=== PATIENT | male | born 1990 | race Caucasian/White ===

== ENCOUNTER 2017-01-31 07:33 | Emergency (ER) | payer OTHER ==
[~2017-01-31] VITALS: Ht 170.2 cm; Wt 80.5 kg
[2017-01-31 07:35] VITALS: BP 118/75; PULSE 70; RESP 14; TEMP 98.2; O2SAT 99
[2017-01-31] MEDS ORDERED: SODIUM CHLORIDE 0.9% FLUSH 10 ML FLUSH IVF PRN (07:45)
[2017-01-31] MEDS ORDERED: DEXAMETHASONE SOD PHOS 4 MG/ML VIAL IV ONE (07:45)
[2017-01-31 07:58] LABS: AUTOMATED NEUTROPHIL # 5.4 TH/MM3 (1.8-7.7); BASOPHIL # 0.2 TH/MM3 (0-0.2); BASOPHIL % 2.2 % (0.0-2.0); EOSINOPHIL # 0.2 TH/MM3 (0-0.4); EOSINOPHIL % 2.4 % (0.0-4.0); HEMATOCRIT 41.6 % (39.0-51.0); LYMPH % 11.3 % (9.0-44.0); LYMPHOCYTE # 0.8 TH/MM3 (1.0-4.8); MEAN CELL VOLUME 84.2 FL (80.0-100.0); MEAN CORPUSCULAR HEMOGLOBIN 28.2 PG (27.0-34.0); MEAN CORPUSCULAR HGB CONC 33.5 % (32.0-36.0); MONO % 7.1 % (0.0-8.0); PLATELET COUNT 240 TH/MM3 (150-450); RED BLOOD COUNT 4.95 MIL/MM3 (4.50-5.90); RED CELL DISTRIBUTION WIDTH 12.8 % (11.6-17.2); WHITE BLOOD COUNT 7.1 TH/MM3 (4.0-11.0)
[2017-01-31 07:59] LABS: HEMO FLAGS DIFF FINAL
[2017-01-31 08:06] LABS: POTASSIUM 3.9 MEQ/L (3.5-5.1)
[2017-01-31 08:09] LABS: BICARBONATE 28.9 MEQ/L (21.0-32.0)
[2017-01-31] MEDS ORDERED: IOHEXOL 350 MG/ML 10 ML VIAL (for RAD DIAG) IV ONE (08:45)
--- NOTE | 2017-01-31 08:47 | RADRPT ---
EXAM DATE/TIME: 01/31/2017 08:21 [place] COMPARISON: No previous studies available for comparison. INDICATIONS : Sore throat, swelling neck, 2 days, history cysts. IV CONTRAST: 75 cc Omnipaque 350 (iohexol) IV RADIATION DOSE: 12.94 CTDIvol (mGy) MEDICAL HISTORY : snuff SURGICAL HISTORY : 9 cyst removals, thyroglossal. ENCOUNTER: Initial ACUITY: 2 days PAIN SCALE: 6/10 LOCATION: Bilateral neck TECHNIQUE: Volumetric scanning of the neck was performed. Using automated exposure control and adjustment of th e mA and/or kV according to patient size, radiation dose was kept as low as reasonably achievable to obtain optimal diagnostic quality images. DICOM format image data is available electronically for r eview and comparison. FINDINGS: NASOPHARYNX: The nasopharyngeal airway has a normal configuration. No mucosal thickening or mass is seen. OROPHARYNX: The intrinsic muscles of the tongue are symmetric. The tonsillar pillars are intact. The prevertebr al soft tissues are not thickened. LARYNX: The supraglottic, glottic, and infraglottic structures are intact. PARAPHARYNGEAL: The parapharyngeal space is intact. SALIVARY GLANDS: The parotid and submandibular glands are intact. LYMPH NODES: No enlarged or necrotic-appearing nodes. THYROID: Homogeneous enhancement without evidence of nodule. BONES: Unremarkable. There is chronic bilateral maxillary sinus disease, left greater than right. CONCLUSION: 1. Bilateral chronic maxillary sinus disease, left greater than right. 2. Otherwise unremarkable CT soft tissue neck for patient's age. Darwin Tadeo MD on January 31, 2017 at 8:42 Board Certified Radiologist. This report was verified electronically.
[2017-01-31] MEDS ORDERED: CIPR500T2 PO (09:08)
[2017-01-31] MEDS ORDERED: CODE30TA2 PO (09:08)
--- NOTE | 2017-01-31 09:10 | PD ---
HPI Chief Complaint: Cold / Flu Symptoms Time Seen by Provider: 07:44 Travel History International Travel<30 days: No Contact w/Intl Traveler<30days: No Traveled to known affect area: No History of Present Illness HPI C/O SORE THROAT, ONGOING FOR PAST 24 HRS, WORSE WITH SWALLOWING, (GIVES H/O MULTIPLE SURGERIES FOR THYROGLOSSAL CYST IN PAST). DENIES FEVER, COUGH, N/V/D/ ABD PAIN. PFSH Past Medical History Medical History: Denies Significant Hx Blood Disorders: No Diminished Hearing: No Tetanus Vaccination: Unknown Past Surgical History Oral Surgery: Yes (9 THROAT SURGERIES WITH CYST REMOVALS) Social History Alcohol Use: No Tobacco Use: No Substance Use: No Allergies-Medications (Allergen,Severity, Reaction): Coded Allergies: Apple (Verified Adverse Reaction, Severe, Vomiting, 01/31/17) Augmentin (Verified Adverse Reaction, Severe, "Severe colitis", 01/31/17) Reported Meds & Prescriptions Reported Meds & Active Scripts Active Codeine-Acetaminophen 30-300 mg Tab 1 Tab PO Q4H PRN Ciprofloxacin (Ciprofloxacin HCl) 500 Mg Tab 500 Mg PO BID Review of Systems Except as stated in HPI: all other systems reviewed are Neg HENT: Positive: Sore Throat Physical Exam Narrative GENERAL: SKIN: Warm and dry. HEAD: Atraumatic. Normocephalic. EYES: Pupils equal and round. No scleral icterus. No injection or drainage. ENT: No nasal bleeding or discharge. Mucous membranes pink and moist...ERYTHEMATOUS AND EDEMATOUS OROPHARYNX BUT WITHOUT EXUDATE, WITHOUT UVULAR EDEMA, NO STRIDOR, NO RESP DISTRESS NECK: Trachea midline. No JVD. OLD HEALED SURGICAL SCAR IN MIDLINE SUBMENTAL AREA. CARDIOVASCULAR: Regular rate and rhythm. RESPIRATORY: No accessory muscle use. Clear to auscultation. Breath sounds equal bilaterally. GASTROINTESTINAL: Abdomen soft, non-tender, nondistended. Hepatic and splenic margins not palpable. MUSCULOSKELETAL: Extremities without clubbing, cyanosis, or edema. No obvious deformities. NEUROLOGICAL: Awake and alert. No obvious cranial nerve deficits. Motor grossly within normal limits. Five out of 5 muscle strength in the arms and legs. Normal speech. PSYCHIATRIC: Appropriate mood and affect; insight and judgment normal. Data Data Last Documented VS Orders Basic Metabolic Panel (Bmp) (01/31/17 07:44) Complete Blood Count With Diff (01/31/17 07:44) Monoscreen (01/31/17 07:44) Group A Rapid Strep Screen (01/31/17 07:44) Ct Soft Tiss Neck W Iv Cont (01/31/17 07:44) Iv Access Insert/Monitor (01/31/17 07:44) Dexamethasone Inj (Decadron Inj) (01/31/17 07:45) Sodium Chloride 0.9% Flush (Ns Flush) (01/31/17 07:45) Strep Culture (Group A) (01/31/17 07:50) Iohexol 350 Inj (Omnipaque 350 Inj) (01/31/17 08:45) Labs MDM Medical Decision Making Medical Screen Exam Complete: Yes Emergency Medical Condition: Yes Medical Record Reviewed: Yes Differential Diagnosis PHARYNGITIS V RETROPHARYNGEAL ABSCESS V NECK SPACE ABSCESS V MONO V STREP Narrative Course PATIENT TOLERATING PO FLUIDS WELL, IN NO RESP DISTRESS. STREP NEG, CBC AND CMP WNL , MONO PENDING, CT NECK NEG ABSCESS BUT DID NOTE CHAYO MAX SINUSITIS (CHRONIC APPEARANCE PER RAD)... IN LIEU OF THESE FINDINGS WILL START PATIENT ON CIPRO AND TYL#3 (PT IS ALLERGIC TO AUGMENTIN) Diagnosis Primary Impression: PHARYNGITIS Additional Impression: Chronic sinusitis of both maxillary sinuses Patient Instructions: General Instructions, Pharyngitis (ED) Scripts Codeine-Acetaminophen 30-300 mg Tab1 Tab PO Q4H PRN (PAIN) #20 TAB Prov:Tashi Mejia MD 01/31/17 Ciprofloxacin 500 Mg [id number] Mg PO BID #14 TAB Prov:Tashi Mejia MD 01/31/17 Disposition: 01 DISCHARGE HOME Condition: Stable Tashi Mejia MD Jan 31, 2017 09:10 Red Cell Distribution Width 12.8 % Platelet Count 240 TH/MM3 Mean Platelet Volume 7.6 FL Neutrophils (%) (Auto) 77.0 % Lymphocytes (%) (Auto) 11.3 % Monocytes (%) (Auto) 7.1 % Eosinophils (%) (Auto) 2.4 % Basophils (%) (Auto) 2.2 % Neutrophils # (Auto) 5.4 TH/MM3 Lymphocytes # (Auto) 0.8 TH/MM3 Monocytes # (Auto) 0.5 TH/MM3 Eosinophils # (Auto) 0.2 TH/MM3 Basophils # (Auto) 0.2 TH/MM3 CBC Comment DIFF FINAL Differential Comment Sodium Level 142 MEQ/L Potassium Level 3.9 MEQ/L Chloride Level 107 MEQ/L Carbon Dioxide Level 28.9 MEQ/L Anion Gap 6 MEQ/L Blood Urea Nitrogen 14 MG/DL Creatinine 0.94 MG/DL Estimat Glomerular Filtration 99 ML/MIN Rate Random Glucose 69 MG/DL Calcium Level 9.0 MG/DL [facility] Medical Decision Making Medical Screen Exam Complete: Yes Medical Record Reviewed: Yes Differential Diagnosis PHARYNGITIS V RETROPHARYNGEAL ABSCESS V NECK SPACE ABSCESS V MONO V STREP Narrative Course PATIENT TOLERATING PO FLUIDS WELL, IN NO RESP DISTRESS. STREP NEG, CBC AND CMP WNL , MONO PENDING, CT NECK NEG ABSCESS BUT DID NOTE CHAYO MAX SINUSITIS (CHRONIC APPEARANCE PER RAD)... IN LIEU OF THESE FINDINGS WILL START PATIENT ON CIPRO AND TYL#3 (PT IS ALLERGIC TO AUGMENTIN) Diagnosis Primary Impression: PHARYNGITIS Additional Impression: Chronic sinusitis of both maxillary sinuses Patient Instructions: General Instructions, Pharyngitis (ED) Scripts Codeine-Acetaminophen 30-300 mg Tab1 Tab PO Q4H PRN (PAIN) #20 TAB Prov:Tashi Mejia MD 01/31/17 Ciprofloxacin 500 Mg [id number] Mg PO BID #14 TAB Prov:Tashi Mejia MD 01/31/17 Disposition: 01 DISCHARGE HOME Condition: Stable Tashi Mejia MD Jan 31, 2017 09:10
[2017-01-31 09:42] VITALS: BP 114/72
== END 2017-01-31 09:47 | disposition home or self-care (01) ==
LOC: PHED 07:33
DX: J02.9 Acute pharyngitis, unspecified (principal); J32.0 Chronic maxillary sinusitis
CPT/HCPCS: 70491; 80048; 85025; 86308; 87081; 87880; 96374; 99285; J1100; Q9967

== ENCOUNTER 2017-04-16 14:18 | Emergency (ER) | payer OTHER ==
[~2017-04-16] VITALS: Ht 172.7 cm; Wt 78.6 kg
[~2017-04-16 14:18] MED LIST: CIPR500T2 PO; CODE30TA2 PO
[2017-04-16 14:22] VITALS: BP 128/70; PULSE 62; RESP 18; TEMP 98; O2SAT 100
[2017-04-16] MEDS ORDERED: SODIUM CHLOR 0.9% 1000 ML INJ 1,000 ML IV ONE ×2 (14:33→15:45)
--- NOTE | 2017-04-16 14:41 | PD ---
HPI . Vomiting and diarrhea Chief Complaint: GI Complaint Time Seen by Provider: 14:32 Travel History International Travel<30 days: No Contact w/Intl Traveler<30days: No Traveled to known affect area: No History of Present Illness HPI Patient presents with the acute onset of nausea, vomiting and diarrhea. It started this morning. He has had about 5 episodes of each. He is also having some left-sided crampy abdominal pain which he rates 9/10. He states that the abdominal pain comes just prior to vomiting. Denies any urinary tract symptoms such as dysuria, frequency or urgency. He denies fever. He has no known sick contacts. No modifying factors. PFSH Past Medical History Blood Disorders: No Diminished Hearing: No Past Surgical History Oral Surgery: Yes (9 THROAT SURGERIES WITH CYST REMOVALS) Social History Alcohol Use: No Tobacco Use: No Substance Use: No Allergies-Medications (Allergen,Severity, Reaction): Coded Allergies: amoxicillin (Unverified Adverse Reaction, Severe, "Severe colitis", 04/16/17 ) apple (Unverified Adverse Reaction, Severe, Vomiting, 04/16/17) clavulanic acid (Unverified Adverse Reaction, Severe, "Severe colitis", 04/16/17) Reported Meds & Prescriptions Reported Meds & Active Scripts Active Phenergan (Promethazine HCl) 25 Mg Tablet 25 Mg PO Q6H PRN Review of Systems Except as stated in HPI: all other systems reviewed are Neg General / Constitutional: No: Fever, Chills Gastrointestinal: Positive: Nausea, Vomiting, Diarrhea, Abdominal Pain Genitourinary: No: Urgency, Frequency, Dysuria Physical Exam Narrative GENERAL: This patient is pale and does not look like he feels well. SKIN: Cool and clammy. HEAD: Normocephalic. EYES: Pupils equal and round. No scleral icterus. No injection or drainage. ENT: No nasal bleeding or discharge. Mucous membranes pink and moist. NECK: Trachea midline. Full range of motion without pain.. CARDIOVASCULAR: Regular rate and rhythm. RESPIRATORY: No accessory muscle use. Clear to auscultation. Breath sounds equal bilaterally. GASTROINTESTINAL: Abdomen soft. Left upper quadrant tenderness. No guarding or rebound. Bowel sounds present. Nondistended. MUSCULOSKELETAL: No obvious deformities. NEUROLOGICAL: Awake and alert. No obvious cranial nerve deficits. Motor grossly within normal limits. Normal speech. PSYCHIATRIC: Appropriate mood and affect; insight and judgment normal. Data Data Last Documented VS Vital Signs Date Time Temp Pulse Resp B/P (MAP) Pulse Ox O2 Delivery O2 Flow Rate FiO2 04/16/17 15:45 54 16 125/64 (84) 100 Room Air 04/16/17 14:22 98.0 Orders Orders Complete Blood Count With Diff (04/16/17 14:33) Basic Metabolic Panel (Bmp) (04/16/17 14:33) Urinalysis - C+S If Indicated (04/16/17 14:33) Iv Access Insert/Monitor (04/16/17 14:33) Morphine Inj (Morphine Inj) (04/16/17 14:45) Ondansetron Inj (Zofran Inj) (04/16/17 14:45) Sodium Chlor 0.9% 1000 Ml Inj (Ns 1000 M (04/16/17 14:33) Sodium Chloride 0.9% Flush (Ns Flush) (04/16/17 14:45) Sodium Chlor 0.9% 1000 Ml Inj (Ns 1000 M (04/16/17 15:45) Labs Laboratory Tests Test 04/16/17 14:42 04/16/17 14:48 White Blood Count 13.1 TH/MM3 Red Blood Count 4.82 MIL/MM3 Hemoglobin 13.8 GM/DL Hematocrit 40.5 % Mean Corpuscular Volume 83.9 FL Mean Corpuscular Hemoglobin 28.6 PG Mean Corpuscular Hemoglobin Concent 34.1 % Red Cell Distribution Width 12.6 % Platelet Count 253 TH/MM3 Mean Platelet Volume 7.9 FL Neutrophils (%) (Auto) 87.9 % Lymphocytes (%) (Auto) 6.8 % Monocytes (%) (Auto) 4.7 % Eosinophils (%) (Auto) 0.4 % Basophils (%) (Auto) 0.2 % Neutrophils # (Auto) 11.5 TH/MM3 Lymphocytes # (Auto) 0.9 TH/MM3 Monocytes # (Auto) 0.6 TH/MM3 Eosinophils # (Auto) 0.1 TH/MM3 Basophils # (Auto) 0.0 TH/MM3 CBC Comment DIFF FINAL Differential Comment Blood Urea Nitrogen 16 MG/DL Creatinine 0.90 MG/DL Random Glucose 92 MG/DL Calcium Level 9.3 MG/DL Sodium Level 139 MEQ/L Potassium Level 4.3 MEQ/L Chloride Level 105 MEQ/L Carbon Dioxide Level 27.9 MEQ/L Anion Gap 6 MEQ/L Estimat Glomerular Filtration Rate 104 ML/MIN Urine Color YELLOW Urine Turbidity CLOUDY Urine pH 7.0 Urine Specific [place] 1.024 Urine Protein NEG mg/dL Urine Glucose (UA) NEG mg/dL Urine Ketones NEG mg/dL Urine Occult Blood NEG Urine Nitrite NEG Urine Bilirubin NEG Urine Leukocyte Esterase NEG Urine RBC 0-3 /hpf Urine WBC 0-2 /hpf Urine Squamous Epithelial Cells 0-5 /hpf Urine Amorphous Sediment MOD Microscopic Urinalysis Comment CULT NOT INDICATED MDM Medical Decision Making Medical Screen Exam Complete: Yes Emergency Medical Condition: Yes Differential Diagnosis Differential diagnosis of diarrhea includes but is not limited to early enteritis, bacterial enteritis, antibiotic induced diarrhea, irritable bowel syndrome Narrative Course This patient presents with the acute onset of vomiting and diarrhea. He will be fluid resuscitated. The symptoms would be treated with morphine and Zofran. I will check a UA because of the left upper quadrant pain to rule out stone or infection. UA is neg for infection or blood. BMP Diagram 04/16/17 14:42 Calcium Level 9.3 CBC Diagram 04/16/17 14:42 The patient reports that he is feeling much better. He still looks pale. I will give him a second liter of fluid prior to discharge. Diagnosis Primary Impression: Vomiting Qualified Codes: R11.2 - Nausea with vomiting, unspecified Additional Impressions: Diarrhea Qualified Codes: R19.7 - Diarrhea, unspecified Left upper quadrant abdominal pain of unknown etiology Patient Instructions: Gastroenteritis (DC), General Instructions Med/Other Pt SpecificInfo: Prescription(s) given Scripts Promethazine (Phenergan) 25 Mg Tablet 25 MG PO Q6H Y for NAUSEA OR VOMITING, #10 TAB 0 Refills Prov: Aliza Lord MD 04/16/17 Disposition: 01 DISCHARGE HOME Condition: Stable Aliza Lord MD Apr 16, 2017 14:41
[2017-04-16] MEDS ORDERED: SODIUM CHLORIDE 0.9% FLUSH 10 ML FLUSH IVF PRN (14:45)
[2017-04-16] MEDS ORDERED: ONDANSETRON HCL 4 MG/2 ML VIAL IVP ONE (14:45)
[2017-04-16] MEDS ORDERED: MORPHINE SULFATE 4 MG/ML INJ IV ONE (14:45)
[2017-04-16 14:59] LABS: AUTOMATED NEUTROPHIL # 11.5 TH/MM3 (1.8-7.7); BASOPHIL % 0.2 % (0.0-2.0); EOSINOPHIL # 0.1 TH/MM3 (0-0.4); EOSINOPHIL % 0.4 % (0.0-4.0); HEMATOCRIT 40.5 % (39.0-51.0); LYMPH % 6.8 % (9.0-44.0); LYMPHOCYTE # 0.9 TH/MM3 (1.0-4.8); MEAN CELL VOLUME 83.9 FL (80.0-100.0); MEAN CORPUSCULAR HEMOGLOBIN 28.6 PG (27.0-34.0); MEAN CORPUSCULAR HGB CONC 34.1 % (32.0-36.0); MONO % 4.7 % (0.0-8.0); NEUT % 87.9 % (16.0-70.0); PLATELET COUNT 253 TH/MM3 (150-450); RED BLOOD COUNT 4.82 MIL/MM3 (4.50-5.90); RED CELL DISTRIBUTION WIDTH 12.6 % (11.6-17.2); WHITE BLOOD COUNT 13.1 TH/MM3 (4.0-11.0)
[2017-04-16 15:02] LABS: BLOOD, URINE NEG (NEG); GLUCOSE,URINE NEG (NEG); KETONE, URINE NEG (NEG); NITRITE,URINE NEG (NEG)
[2017-04-16 15:08] LABS: POTASSIUM 4.3 MEQ/L (3.5-5.1)
[2017-04-16 15:12] LABS: BICARBONATE 27.9 MEQ/L (21.0-32.0)
[2017-04-16 15:15] LABS: URINE COLOR YELLOW (YELLW/STRAW)
[2017-04-16 15:17] LABS: COMMENT (UR) CULT NOT INDICATED; CULTURE IF INDICATED CULT NOT INDICATED; RBC, URINE 0-3 /hpf (0-3); SQUAMOUS EPITHELIAL CELL URINE 0-5 /hpf (0-5); WBC, URINE 0-2 /hpf (0-5)
[2017-04-16] MEDS ORDERED: PROM25TA10 PO (15:33)
[2017-04-16 15:44] LABS: HEMO FLAGS DIFF FINAL
[2017-04-16 15:45] VITALS: BP 125/64; PULSE 54; RESP 16; O2SAT 100
== END 2017-04-16 16:18 | disposition home or self-care (01) ==
LOC: PHED 14:18
DX: R11.2 Nausea with vomiting, unspecified (principal); R19.7 Diarrhea, unspecified; R10.9 Unspecified abdominal pain
CPT/HCPCS: 80048; 81001; 85025; 96361; 96374; 96375; 99284; J2270; J2405; J7030

== ENCOUNTER 2017-05-13 20:31 | Emergency (ER) | payer OTHER ==
[~2017-05-13] VITALS: Ht 172.7 cm; Wt 79.8 kg
[~2017-05-13 20:31] MED LIST changes: -CIPR500T2 PO; -CODE30TA2 PO; +PROM25TA10 PO
[2017-05-13 20:43] VITALS: BP 128/79; PULSE 53; RESP 18; TEMP 98.5; O2SAT 100
--- NOTE | 2017-05-13 21:29 | PD ---
HPI Chief Complaint: Respiratory Symptoms Time Seen by Provider: 21:26 Travel History International Travel<30 days: No Contact w/Intl Traveler<30days: No Traveled to known affect area: No History of Present Illness HPI 26-year-old male presents emergency department for evaluation of cough and wheezing times one day. Patient reports no sick contacts. He reports mild sore throat and nasal congestion. He denies fever, chills, chest pain, shortness of breath. No aggravating factors or alleviating factors. Symptoms severity mild PFSH Past Medical History Medical History: Denies Significant Hx Blood Disorders: No Diminished Hearing: No Immunizations Current: Yes Past Surgical History Oral Surgery: Yes (9 THROAT SURGERIES WITH CYST REMOVALS) Social History Alcohol Use: No Tobacco Use: Yes (Quit dip 2 weeks ago) Substance Use: No Allergies-Medications (Allergen,Severity, Reaction): Coded Allergies: amoxicillin (Unverified Adverse Reaction, Severe, "Severe colitis", ) apple (Unverified Adverse Reaction, Severe, Vomiting, 05/13/17) clavulanic acid (Unverified Adverse Reaction, Severe, "Severe colitis", ) Reported Meds & Prescriptions Reported Meds & Active Scripts Active No Active Prescriptions or Reported Medications Review of Systems Except as stated in HPI: all other systems reviewed are Neg HENT: Positive: Congestion Respiratory: Positive: Cough, Wheezing Physical Exam Narrative GENERAL: Well-nourished, well-developed patient. SKIN: Focused skin assessment warm/dry. HEAD: Normocephalic. EYES: No scleral icterus. No injection or drainage. NECK: Supple, trachea midline. No JVD or lymphadenopathy. CARDIOVASCULAR: Regular rate and rhythm without murmurs, gallops, or rubs. RESPIRATORY: Breath sounds equal bilaterally. No accessory muscle use. Slight expiratory wheeze which clears with cough. No rhonchi. GASTROINTESTINAL: Abdomen soft, non-tender, nondistended. Data Data Last Documented VS Vital Signs Date Time Temp Pulse Resp B/P (MAP) Pulse Ox O2 Delivery O2 Flow Rate FiO2 05/13/17 20:43 98.5 53 18 128/79 (95) 100 MDM Medical Decision Making Medical Screen Exam Complete: Yes Emergency Medical Condition: Yes Differential Diagnosis URI, asthma, pneumonia, reactive airway, bronchitis Narrative Course 26-year-old male presents emergency department for evaluation of cough and wheezing times one day. Patient reports he also has nasal congestion and mild sore throat. He reports no history of asthma. On exam he is well-appearing. Patient does have mild expiratory wheeze which clears with cough. His vital signs are stable. His pulse ox on room air is 100%. No respiratory distress. Mild pharyngeal erythema without tonsillar hypertrophy or exudate. Patient's exam is consistent with viral URI and mild reactive airways. Patient be treated with steroids, bronchodilator, cough suppressant. Diagnosis Primary Impression: URI (upper respiratory infection) Qualified Codes: J06.9 - Acute upper respiratory infection, unspecified; B97.89 - Other viral agents as the cause of diseases classified elsewhere Referrals: [facility] Additional Instructions: Take medications as prescribed. Stay well hydrated by drinking plenty fluids. Follow-up with the [facility]. Return to the emergency department if he developed new or worsening symptoms Scripts Benzonatate (Tessalon Perles) 100 Mg Cap 100 MG PO TID Y for COUGH for 5 Days, CAP 0 Refills Prov: Ana Cristina Pollard 05/13/17 Albuterol 18 GM Inh (Ventolin Hfa 18 GM Inh) 90 Mcg/Act Aer 2 PUFF INH Q4-6H Y for SHORTNESS OF BREATH, #1 INHALER 0 Refills Prov: Ana Cristina Pollard 05/13/17 Prednisone (Prednisone) 20 Mg Tab 40 MG PO DAILY, #10 TAB 0 Refills Take 40 mg (2 tablets) daily for 5 days Prov: Ana Cristina Pollard 05/13/17 Disposition: 01 DISCHARGE HOME Condition: Stable Ana Cristina Pollard May 13, 2017 21:29
[2017-05-13] MEDS ORDERED: BENZ100 PO (21:41)
[2017-05-13] MEDS ORDERED: PRED20 PO (21:41)
[2017-05-13] MEDS ORDERED: VENTAER INH (21:41)
== END 2017-05-13 21:50 | disposition home or self-care (01) ==
LOC: PHEFT 20:31
DX: J06.9 Acute upper respiratory infection, unspecified (principal); B97.89 Other viral agents as the cause of diseases classified elsewhere; Z87.891 Personal history of nicotine dependence
CPT/HCPCS: 99284

== ENCOUNTER 2017-06-06 19:10 | Emergency (ER) | payer OTHER ==
[~2017-06-06] VITALS: Ht 170.2 cm; Wt 78.0 kg
[~2017-06-06 19:10] MED LIST changes: +BENZ100 PO; +PRED20 PO; -PROM25TA10 PO; +VENTAER INH
[2017-06-06] MEDS ORDERED: IOHEXOL 350 MG/ML 10 ML VIAL (for RAD DIAG) IVCONTRAST ONE (19:11)
[2017-06-06 19:16] VITALS: BP 112/75; PULSE 76; RESP 18; TEMP 99; O2SAT 100
[2017-06-06] MEDS ORDERED: ONDANSETRON HCL 4 MG/2 ML VIAL IV PUSH ONE (19:30)
[2017-06-06] MEDS ORDERED: SODIUM CHLORIDE 0.9% FLUSH 10 ML FLUSH IV FLUSH PRN (19:30)
[2017-06-06] MEDS ORDERED: KETOROLAC TROMETHAMINE 30 MG/ML (IVP) VIAL IV PUSH ONE (19:30)
[2017-06-06] MEDS ORDERED: SODIUM CHLOR 0.9% 1000 ML INJ 1,000 ML IV ONE (19:30)
--- NOTE | 2017-06-06 19:32 | PD ---
HPI Chief Complaint: GI Complaint Time Seen by Provider: 19:25 Travel History International Travel<30 days: No Contact w/Intl Traveler<30days: No Traveled to known affect area: No History of Present Illness HPI This is a 26-year-old male who presents to the emergency department with right sided flank pain that started at 3 PM, intermittent, sharp and stabbing associated with multiple episodes of vomiting as well as shaking chills and sweats. He denies any diarrhea. He had pain once like this in April and came to the emergency department and says he wasn't given a diagnosis. He's never had any abdominal surgeries. No one else is been sick. He denies any recent travel or camping. PFSH Past Medical History Narrative Medical Thyroglossal duct cyst Blood Disorders: No Diminished Hearing: No Immunizations Current: Yes ?: Not Past Surgical History Oral Surgery: Yes (9 THROAT SURGERIES WITH CYST REMOVALS) Social History Alcohol Use: No Tobacco Use: Yes (Quit dip 2 weeks ago) Substance Use: No Allergies-Medications (Allergen,Severity, Reaction): Coded Allergies: amoxicillin (Verified Adverse Reaction, Severe, "Severe colitis", 06/06/17 ) apple (Verified Adverse Reaction, Severe, Vomiting, 06/06/17) clavulanic acid (Verified Adverse Reaction, Severe, "Severe colitis", ) Reported Meds & Prescriptions Reported Meds & Active Scripts Active Review of Systems Except as stated in HPI: all other systems reviewed are Neg Physical Exam Narrative GENERAL:Well appearing, no acute distress SKIN: Focused skin assessment warm and dry. HEAD: Atraumatic. Normocephalic. EYES: Pupils equal and round. No injection or drainage. ENT: Moist mucous membranes NECK: Trachea midline. CARDIOVASCULAR: Regular rate and rhythm. No murmur appreciated. RESPIRATORY: Clear to auscultation. Breath sounds equal bilaterally. GASTROINTESTINAL: Abdomen soft, tender to palpation diffusely in the upper abdomen with no rebound or guarding. : No CVA tenderness MUSCULOSKELETAL: No obvious deformities. NEUROLOGICAL: Awake and alert. No obvious cranial nerve deficits. Moving all extremities. PSYCHIATRIC: Appropriate mood and affect; insight and judgment normal. Data Data Last Documented VS Vital Signs Date Time Temp Pulse Resp B/P (MAP) Pulse Ox O2 Delivery O2 Flow Rate FiO2 06/06/17 19:16 99.0 76 18 112/75 (87) 100 Orders Orders Complete Blood Count With Diff (06/06/17 19:26) Comprehensive Metabolic Panel (06/06/17 19:26) Lipase (06/06/17 19:26) Urinalysis - C+S If Indicated (06/06/17 19:26) Us Abdomen Gallbladder (06/06/17 ) Iv Access Insert/Monitor (06/06/17 19:26) Ecg Monitoring (06/06/17 19:26) Oximetry (06/06/17 19:26) Sodium Chloride 0.9% Flush (Ns Flush) (06/06/17 19:30) Sodium Chlor 0.9% 1000 Ml Inj (Ns 1000 M (06/06/17 19:30) Ketorolac Inj (Toradol Inj) (06/06/17 19:30) Ondansetron Inj (Zofran Inj) (06/06/17 19:30) Ct Abd/Pel W Iv Contrast(Rout) (06/06/17 ) Iohexol 350 Inj (Omnipaque 350 Inj) (06/06/17 19:11) Labs Laboratory Tests Test 06/06/17 19:40 White Blood Count 14.4 TH/MM3 Red Blood Count 5.63 MIL/MM3 Hemoglobin 15.6 GM/DL Hematocrit 47.5 % Mean Corpuscular Volume 84.4 FL Mean Corpuscular Hemoglobin 27.6 PG Mean Corpuscular Hemoglobin Concent 32.8 % Red Cell Distribution Width 12.8 % Platelet Count 269 TH/MM3 Mean Platelet Volume 8.0 FL Neutrophils (%) (Auto) 87.8 % Lymphocytes (%) (Auto) 4.5 % Monocytes (%) (Auto) 4.2 % Eosinophils (%) (Auto) 0.8 % Basophils (%) (Auto) 2.7 % Neutrophils # (Auto) 12.7 TH/MM3 Lymphocytes # (Auto) 0.6 TH/MM3 Monocytes # (Auto) 0.6 TH/MM3 Eosinophils # (Auto) 0.1 TH/MM3 Basophils # (Auto) 0.4 TH/MM3 CBC Comment DIFF FINAL Differential Comment Urine Color YELLOW Urine Turbidity CLEAR Urine pH 6.0 Urine Specific [place] 1.024 Urine Protein NEG mg/dL Urine Glucose (UA) NEG mg/dL Urine Ketones TRACE mg/dL Urine Occult Blood NEG Urine Nitrite NEG Urine Bilirubin NEG Urine Leukocyte Esterase NEG Urine RBC 0-2 /hpf Urine WBC 0-2 /hpf Urine Squamous Epithelial Cells 0-5 /hpf Urine Bacteria NONE /hpf Microscopic Urinalysis Comment CULT NOT INDICATED Blood Urea Nitrogen 13 MG/DL Creatinine 0.92 MG/DL Random Glucose 89 MG/DL Total Protein 8.3 GM/DL Albumin 4.3 GM/DL Calcium Level 9.2 MG/DL Alkaline Phosphatase 74 U/L Aspartate Amino Transf (AST/SGOT) 17 U/L Alanine Aminotransferase (ALT/SGPT) 36 U/L Total Bilirubin 0.8 MG/DL Sodium Level 138 MEQ/L Potassium Level 4.0 MEQ/L Chloride Level 101 MEQ/L Carbon Dioxide Level 28.8 MEQ/L Anion Gap 8 MEQ/L Estimat Glomerular Filtration Rate 101 ML/MIN Lipase 102 U/L MDM Medical Decision Making Medical Screen Exam Complete: Yes Emergency Medical Condition: Yes Interpretation(s) Temperature is 99 Pulse is 76 Leukocytosis with 80% neutrophils Electrolytes are reassuring Lipase is normal Urinalysis is negative for infection Last 24 hours Impressions Gall Bladder Ultrasound 06/06/17 0000 Signed Impressions: Service Date/Time: Thursday, June 06, 2017 19:55 - CONCLUSION: No gallstones seen. Yoan Mcclain MD CT abdomen and pelvis: No acute process Differential Diagnosis Cholelithiasis, cholecystitis, gastroenteritis, appendicitis Narrative Course This is a 26-year-old male who presents to the emergency department with vomiting, chills and right sided abdominal discomfort. Labs are obtained which demonstrate a leukocytosis and otherwise normal biliary labs and no urinary tract infection. Ultrasound of the right upper quadrant was negative for cholecystitis. CT abdomen and pelvis was unremarkable. This patient seems to have similar pain intermittently every couple of months. I suspect he may have an underlying inflammatory bowel disease. I strongly advised him to follow-up with a shirring machine operator. Otherwise he is nontoxic appearing and I think he is appropriate for outpatient symptomatic management. Patient will be discharged home. Diagnosis Primary Impression: Abdominal pain Qualified Codes: R10.11 - Right upper quadrant pain Referrals: [facility] Patient Instructions: General Instructions Additional Instructions: If you develop severe or worsening abdominal pain, fever>100.4, persistent vomiting or inability to eat or drink return to the emergency department immediately. Given your symptoms continue to recur I think you should follow-up with a shirring machine operator for colonoscopy. Med/Other Pt SpecificInfo: Prescription(s) given Scripts Naproxen (Naproxen) 500 Mg Tab 500 MG PO BID Y for PAIN SCALE 4 TO 10, #20 TAB 0 Refills Prov: Alliosn Houston MD 06/06/17 Ondansetron Odt (Zofran Odt) 4 Mg Tab 4 MG SL Q6HR Y for Nausea/Vomiting, #10 TAB 0 Refills Prov: Allison Houston MD 06/06/17 Disposition: 01 DISCHARGE HOME Condition: Stable Allison Houston MD Jun 06, 2017 19:32
[2017-06-06 20:02] LABS: BILIRUBIN, URINE NEG (NEG); BLOOD, URINE NEG (NEG); GLUCOSE,URINE NEG (NEG); KETONE, URINE TRACE mg/dL (NEG); NITRITE,URINE NEG (NEG); URINE LEUKOCYTE ESTERASE NEG (NEG)
[2017-06-06 20:05] LABS: AUTOMATED NEUTROPHIL # 12.7 TH/MM3 (1.8-7.7); BASOPHIL # 0.4 TH/MM3 (0-0.2); BASOPHIL % 2.7 % (0.0-2.0); EOSINOPHIL # 0.1 TH/MM3 (0-0.4); EOSINOPHIL % 0.8 % (0.0-4.0); HEMATOCRIT 47.5 % (39.0-51.0); HEMOGLOBIN 15.6 GM/DL (13.0-17.0); LYMPH % 4.5 % (9.0-44.0); LYMPHOCYTE # 0.6 TH/MM3 (1.0-4.8); MEAN CELL VOLUME 84.4 FL (80.0-100.0); MEAN CORPUSCULAR HEMOGLOBIN 27.6 PG (27.0-34.0); MEAN CORPUSCULAR HGB CONC 32.8 % (32.0-36.0); MONO % 4.2 % (0.0-8.0); MONOCYTE # 0.6 TH/MM3 (0-0.9); NEUT % 87.8 % (16.0-70.0); PLATELET COUNT 269 TH/MM3 (150-450); RED BLOOD COUNT 5.63 MIL/MM3 (4.50-5.90); RED CELL DISTRIBUTION WIDTH 12.8 % (11.6-17.2); WHITE BLOOD COUNT 14.4 TH/MM3 (4.0-11.0)
[2017-06-06 20:12] LABS: RBC, URINE 0-2 /hpf (0-3); SQUAMOUS EPITHELIAL CELL URINE 0-5 /hpf (0-5); URINE COLOR YELLOW (YELLW/STRAW); WBC, URINE 0-2 /hpf (0-5)
[2017-06-06 20:14] LABS: CHLORIDE 101 MEQ/L (98-107); SODIUM (NA) 138 MEQ/L (136-145)
[2017-06-06 20:17] LABS: CALCIUM 9.2 MG/DL (8.5-10.1)
[2017-06-06 20:18] LABS: ALBUMIN 4.3 GM/DL (3.4-5.0); BICARBONATE 28.8 MEQ/L (21.0-32.0); BLOOD UREA NITROGEN 13 MG/DL (7-18); GLUCOSE,RANDOM 89 MG/DL (74-106); LIPASE 102 U/L (73-393)
[2017-06-06 20:20] LABS: ALT (GPT) 36 U/L (12-78); AST (GOT) 17 U/L (15-37)
[2017-06-06 20:21] LABS: CREATININE 0.92 MG/DL (0.60-1.30); GLOMERULAR FILTRATION RATE 101 ML/MIN (>89)
[2017-06-06 20:22] LABS: TOTAL BILIRUBIN ADULT 0.8 MG/DL (0.2-1.0); TOTAL PROTEIN 8.3 GM/DL (6.4-8.2)
[2017-06-06 20:23] LABS: ALKALINE PHOSPHATASE 74 U/L (45-117)
--- NOTE | 2017-06-06 20:45 | RADRPT ---
EXAM DATE/TIME: 06/06/2017 19:55 [facility] COMPARISON: No previous studies available for comparison. INDICATIONS : Right upper quadrant pain. MEDICAL HISTORY : Right upper quadrant pain. vomiting. Nausea. SURGICAL HISTORY : Throat cyst removal. ENCOUNTER: Initial ACUITY: 1 day PAIN SCORE: 10/10 LOCATION: Right upper quadrant MEASUREMENTS: LIVER: 13.7 cm length COMMON DUCT: 2 mm RIGHT KIDNEY: 9.8 x 4.2 x 4.7 cm FINDINGS: LIVER: Normal echotexture without focal lesion or ductal dilatation. Hepatopedal flow seen in the portal ve in. The portion of the left lobe is unable to be evaluated due to difficulties in establishing an ac oustic window.. COMMON DUCT: No intraluminal mass or stone visualized. GALLBLADDER: Contains no stones, demonstrates no wall thickening or pericholecystic fluid. PANCREAS: The visualized portions are within normal limits. RIGHT KIDNEY: No evidence of hydronephrosis, stone, or mass. CONCLUSION: No gallstones seen. Yoan Mcclain MD on June 06, 2017 at 20:42 Board Certified Radiologist. This report was verified electronically.
--- NOTE | 2017-06-06 21:42 | RADRPT ---
EXAM DATE/TIME: 06/06/2017 21:27 [facility] COMPARISON: No previous studies available for comparison. INDICATIONS : Right sided flank pain with vomiting. IV CONTRAST: 70 cc Omnipaque 350 (iohexol) IV ORAL CONTRAST: No oral contrast ingested. RADIATION DOSE: 9.83 CTDIvol (mGy) MEDICAL HISTORY : None SURGICAL HISTORY : None. ENCOUNTER: Initial ACUITY: 1 day PAIN SCALE: 10/10 LOCATION: Right flank TECHNIQUE: Volumetric scanning of the abdomen and pelvis was performed. Using automated exposure control and ad justment of the mA and/or kV according to patient size, radiation dose was kept as low as reasonably achievable to obtain optimal diagnostic quality images. DICOM format image data is available electro nically for review and comparison. FINDINGS: LOWER LUNGS: The visualized lower lungs are clear. LIVER: Homogeneous density without lesion. There is no dilation of the biliary tree. No calcified gallston es. SPLEEN: Normal size without lesion. PANCREAS: Within normal limits. KIDNEYS: Normal in size and shape. There is no mass, stone or hydronephrosis. ADRENAL GLANDS: Within normal limits. VASCULAR: There is no aortic aneurysm. BOWEL/MESENTERY: No dilated loops of small or large bowel. The appendix is identified in the right lower quadrant pos terior to the cecum cecal lumen contains gas and there is no periappendiceal induration or fluid. ABDOMINAL WALL: Within normal limits. RETROPERITONEUM: There is no lymphadenopathy. BLADDER: No wall thickening or mass. REPRODUCTIVE: Within normal limits. INGUINAL: There is no lymphadenopathy or hernia. MUSCULOSKELETAL: Within normal limits for patient age. CONCLUSION: Negative CT abdomen/pelvis with contrast. Yoan Mcclain MD on June 06, 2017 at 21:38 Board Certified Radiologist. This report was verified electronically.
[2017-06-06 21:48] VITALS: BP 110/68; PULSE 78; RESP 16; O2SAT 100
[2017-06-06] MEDS ORDERED: ZOFR4TAB3 SL (21:51)
[2017-06-06] MEDS ORDERED: NAPR500T PO (21:51)
== END 2017-06-06 22:02 | disposition home or self-care (01) ==
LOC: PHED 19:10
DX: R10.11 Right upper quadrant pain (principal); R11.10 Vomiting, unspecified; D72.829 Elevated white blood cell count, unspecified
CPT/HCPCS: 74177; 76705; 80053; 81001; 83690; 85025; 96361; 96374; 96375; 99285; J1885; J2405; J7030; Q9967